=== PATIENT | female | born 1985 | race Caucasian/White ===

== ENCOUNTER → 2018-04-03 21:29 | Outpatient (CLI) | payer OTHER, SELFPAY ==
[2018-04-03 15:48] VITALS: BMI 19.7
[2018-04-13 13:09] LABS: HPV APTIMA, High Risk Negative (Negative)
== END ==
PROVIDERS: Referring Provider Obstetrics & Gynecology; Visit Provider Obstetrics & Gynecology
DX: Z12.4 Encounter for screening for malignant neoplasm of cervix (principal)
CPT/HCPCS: 87624; 88175; G0145

== ENCOUNTER 2020-04-28 10:40 | Emergency (ER) | payer OTHER, SELFPAY ==
[2019-04-13 15:00] VITALS: BMI 19.7
[2020-04-28 10:41] VITALS: BP 124/84; PULSE 65; RESP 16; TEMP 36.6; O2SAT 100; BMI 20.1
--- NOTE | 2020-04-28 11:12 | ED.VIS.UPPEX ---
History of Present Illness Chief Complaint: Laceration Narrative: Patient presenting secondary to a laceration of the left small digit. Patient is right-hand dominant. Her tetanus status is around 4-1/2 years. Patient was using a knife last night at about 6 PM, little over 12 hours ago, and suffered a laceration to her small digit. Its been persistently bleeding since then, so now she is presenting for suture repair. Pain is mild, worse with palpation. No numbness or weakness. No history of immunocompromise or easy bruising or bleeding. Past Medical History - Allergies and Home Meds Allergies/Adverse Reactions: Allergies No Known Allergies Allergy (Verified 04/28/20 10:43) Primary Care Physician: Care Physician,No Primary [Primary Care Provider] - Prior records reviewed: Yes Past Medical History: - - Noncontributory Lives: With Family Smoking Status: Never smoker Alcohol: None Drugs: None Review of Systems General: Denies: Fever Respiratory: Denies: Dyspnea, Cough Musculoskeletal: Reports: Extremity Pain Skin: Reports: Wounds Hematologic: Denies: Easy bruising, Easy bleeding Physical Exam Vital Signs/Narrative: Vital Signs Temp Pulse Resp BP Pulse Ox 04/28/20 10:41 97.9 F 65 16 124/84 H 100 Left Finger: - - Laceration noted over the palmar surface of the distal phalanx of the small digit. This measures about 1-1/2 cm. Normal flexion and extension capillary refill sensation and two-point discrimination. General: Well nourished, Well developed Head: Normocephalic, Atraumatic Eyes: EOMI Neck: Full ROM Cardiovascular: Regular rate, Regular rhythm Respiratory: No distress Skin: Normal color, No rash Neurological: Alert, Oriented x3 Psychological: Normal affect Diagnostic/Tx/Re-eval - Medical Decision Making Patient presented with a finger laceration. This was addressed as noted in the procedure note. Patient will be discharged with outpatient follow-up with primary care for suture removal. Procedures Procedure(s): Finger was anesthetized utilizing digital block. 1% lidocaine and a total of 4 cc were injected. Good anesthesia was obtained. Finger was placed under a tourniquet. It was cleansed with 250 cc of sterile saline, there is no evidence of foreign material. Wound was then addressed using 5-0 nylon suture. A total of #3 sutures were placed in a simple interrupted fashion. Patient tolerated this well. ED Disposition - Plan for ED Patient: Disposition: Home or Assisted Living Diagnosis: Finger laceration Instructions: ED Laceration: All Closures Additional Instructions: Follow-up with your primary care physician in 5 to 7 days for suture removal
== END 2020-04-28 11:39 | disposition home or self-care (01) ==
LOC: ED 11:21
PROVIDERS: Emergency Provider Emergency Medicine; PCP Internal Medicine
DX: S61.217D Laceration without foreign body of left little finger without damage to nail, subsequent encounter (principal); W26.0XXD Contact with knife, subsequent encounter
CPT/HCPCS: 12001; 99283

== ENCOUNTER 2020-06-09 11:32 | Outpatient (RCR) | payer OTHER, SELFPAY ==
[2020-05-02 15:09] VITALS: BMI 20.2
== END 2020-06-09 23:59 ==
LOC: IMMUN 11:32
PROVIDERS: PCP Internal Medicine; Referring Provider Family Medicine; Visit Provider Family Medicine
DX: Z23 Encounter for immunization (principal)
CPT/HCPCS: 0011A; 0012A

== ENCOUNTER → 2021-10-13 | Outpatient (CLI) | payer OTHER, SELFPAY | END | disposition home or self-care (01) | PROVIDERS: PCP Internal Medicine; Referring Provider Obstetrics & Gynecology; Visit Provider Obstetrics & Gynecology | DX: R10.2 Pelvic and perineal pain (principal) | CPT/HCPCS: 87086; 87088 ==

== ENCOUNTER → 2022-05-25 | Outpatient (CLI) | payer OTHER, SELFPAY ==
[2022-06-02 22:10] LABS: HPV APTIMA, High Risk Negative (Negative)
== END | disposition home or self-care (01) ==
PROVIDERS: PCP Internal Medicine; Visit Provider Registered Nurse
DX: Z01.419 Encounter for gynecological examination (general) (routine) without abnormal findings (principal)
CPT/HCPCS: 87624; 88175; G0145

== ENCOUNTER → 2024-07-06 | Outpatient (CLI) | payer OTHER, SELFPAY ==
[2024-07-06 12:44] LABS: Absolute Neutrophil Count 2.7 X10^3/uL (2.0-7.7); Basophil# 0.04 X10^3/uL; Basophil% 0.9 % (0-1); Eosinophil# 0.07 X10^3/uL; Eosinophils% 1.5 % (0-5); Hematocrit 39.5 % (37-47); Lymphocyte % 34.4 % (19-41); Mean Corp Hgb Conc 32.9 g/dL (32-36); Mean Platelet Vol. 10.8 fl (6.2-12.0); Monocyte# 0.22 X10^3/uL; Monocyte% 4.7 % (0-10); NRBC Flagged by Analyzer 0 % (0-5); Neutrophil # 2.71 X10^3/uL (2.7-7.7); Neutrophil % 58.3 % (47-70); Platelet Count 250 K/mm3 (150-450); RBC Distribution Width CV 12.1 % (11.6-14.6); RBC Distribution Width SD 41.9 fl (35.1-43.9); White Blood Count 4.7 K/mm3 (4.4-11.0)
[2024-07-07 01:36] LABS: Cholesterol 238 mg/dL (<=200); High Density Lipoprotein 70 mg/dL; Low Density Lipoprotein Calc. 138 mg/dL; Triglycerides 150 mg/dL; Very Low Density Lipoprotein 30 mg/dL (5-40); cholesterol:hdl ratio screen 3.39
[2024-07-07 01:45] LABS: ALB/GLOB Ratio 1.3 RATIO (0.9-2.4); AST(SGOT) 25 U/L (<=31); Alanine Aminotransfer ALT/SGPT 19 U/L (<=34); Albumin, Serum 4.1 g/dL (3.5-5.0); Alkaline Phosphatase 45 U/L (35-104); Anion Gap 15 (5-15); BUN 13 mg/dL (4-19); BUN/Creat Ratio 15.9 RATIO (10-20); Calcium,Total 9.2 mg/dL (7.6-11.0); Carbon Dioxide 21.1 mmol/L (21.0-32.0); Chloride 103 mmol/L (98-108); Creatinine, Serum 0.81 mg/dL (0.70-1.20); EST Glomerular Filtration Rate 95 (>60); Globulin 3.1 g/dL (2.2-4.2); Glucose 85 mg/dL (70-99); Potassium 4.1 mmol/L (3.3-5.1); Protein, Total 7.1 g/dL (5.9-8.4); Sodium Level 138 mmol/L (133-145); Total Bilirubin 0.28 mg/dL (0.00-1.30)
[2024-07-07 16:09] LABS: Lipoprotein A 18.1 nmol/L (<75.0)
== END | disposition home or self-care (01) ==
LOC: BIMLAB 08:21
PROVIDERS: PCP Internal Medicine; Referring Provider Internal Medicine; Visit Provider Internal Medicine
DX: Z00.00 Encounter for general adult medical examination without abnormal findings (principal)
CPT/HCPCS: 36415; 80053; 80061; 83695; 85025

== ENCOUNTER → 2024-08-03 | Outpatient (CLI) | payer OTHER, SELFPAY ==
--- NOTE | 2024-08-03 14:59 | CT_ITS ---
PROCEDURE: LIMITED CHEST CT CARDIAC ONLY REASON FOR EXAM: CARDIAC RISK EVALUATION, FAMILY HISTORY OF ISCHEMIC HEART DISEASE TECHNIQUE: Supine chest CT without contrast,. One or more dose reduction techniques were used (e.g., Automated exposure control, adjustment of the mA and/or kV according to patient size, use of iterative reconstruction technique). COMPARISON: None FINDINGS: Hardware: None Lymph nodes: Small benign-appearing mediastinal lymph nodes. Heart and Vasculature: Normal heart size. No pericardial effusion. Coronary Artery Calcifications: Absent Lungs and Airways: Unremarkable Pleura: Unremarkable Upper Abdomen: Unremarkable Bones: Unremarkable CT/Limited Chest CT Cardiac Only IMPRESSION: Coronary artery calcification (CAC) is is absent Reading Location: [place] [id number]
--- NOTE | 2024-08-03 15:38 | CA.SCORE ---
Calcium Scoring Date of Study:: 08/03/24 Indications Indications: FH Coronary Calcium Scoring: High-resolution Computed Tomographic imaging of the chest was performed on [ 08/03/24], with particular attention paid to the coronary arteries. Images from the examination were analyzed for the presence and extent of coronary artery calcification , using coronary calcium quantification software. The patient tolerated the procedure well and there were no complications. The results of the coronary calcification analysis are provided below. Findings Coronary Artery Left Main (LM): 0 Left Anterior Descending (LAD): 0 Left Circumflex (LCX): 0 Right Coronary Artery (RCA): 0 Total Agatston Score: 0 Percentile Rankin% Calcium Scoring Interpretation: Different methods to categorize the overall amount of coronary plaque. Overall amount CAC SIS Visual of coronary plaque P1 Mild -100 <2 1-2 vessels with mild amount of plaque P2 Moderate 101-300 3-4 1-2 vessels with moderate amount, 3 vessels with mild amount of plaque P3 Severe 301-999 5-7 3 vessels with moderate amount, 1 vessel with severe amount of plaque P4 Extensive >1000 >8 2-3 vessels with severe amount of plaque Conclusion: No atherosclerotic plaque noted
== END | disposition home or self-care (01) ==
PROVIDERS: PCP Internal Medicine; Referring Provider Internal Medicine; Visit Provider Internal Medicine
DX: E78.5 Hyperlipidemia, unspecified (principal); Z82.49 Family history of ischemic heart disease and other diseases of the circulatory system
CPT/HCPCS: 75571; 76380

== ENCOUNTER → 2025-01-27 | Outpatient (CLI) | payer OTHER, SELFPAY ==
--- NOTE | 2025-01-27 07:14 | BI_ITS ---
EXAM: SCRN MAMM (CAD)W/TRICIA BILAT DATE: 01/27/2025 CLINICAL HISTORY: F, Age 39 y/o , BREAST CANCER SCREENING Grandmother with breast cancer. Aunt with breast cancer. TECHNIQUE: Procedure Code: [id number] Modality: MG Procedure: SCRN MAMM (CAD)W/TRICIA BILAT COMPARISON: This is a baseline examination. FINDINGS: TISSUE DENSITY: The breasts are extremely dense, which lowers the sensitivity of mammography. Bilateral Breast Mammographic Findings: No significant masses, calcifications or other abnormalities are identified. BI/SCRN MAMM (CAD)W/TRICIA BILAT IMPRESSION: Unremarkable bilateral screening mammogram. OVERALL FINAL ASSESSMENT BI-RADS 1: NEGATIVE. RECOMMENDATION: Routine annual follow-up in 1 Year Additional Recommendation none A letter with findings and recommendations will be mailed to the patient. Reading Location: [place] [id number]
== END | disposition home or self-care (01) ==
PROVIDERS: PCP Internal Medicine; Referring Provider Advanced Practice Midwife; Visit Provider Advanced Practice Midwife
DX: Z12.31 Encounter for screening mammogram for malignant neoplasm of breast (principal); Z80.3 Family history of malignant neoplasm of breast
CPT/HCPCS: 77063; 77067